=== PATIENT | female | born 1975 | race Caucasian/White ===

== ENCOUNTER 2024-12-24 08:49 | Outpatient (CLI) | payer OTHER, SELFPAY ==
--- OUTSIDE RECORDS SUMMARY | 2024-12-24 08:56 | XMS_ITS | Clinical Summary ---
Author Organization [facility] Address [address] [place] [address] Care Team Providers Care Tuck Pointer Helper Name Role Phone Stevan Ricardo MD Primary Care Provider [phone]- [phone] Source Comments [facility],non-owned Affiliates and Associated Physician Practices is amultiple site organization consisting of ambulatory clinics and hospital sitesin [place], [place], [place] and [place]. This disclosure is being madepursuant to the Care Everywhere program and may not contain all information available regarding this patient. Last updated 18.[facility] Social History Tobacco Use Types Packs/Day Years Used Date Smoking Tobacco: Never Assessed Comments Unknown Sex and Gender Information Value Date Recorded Sex Assigned at Not on file Legal Sex Female 4:04 AM CDT Gender Identity Not on file Sexual Orientation Not on file Plan of Treatment Health Maintenance Due Date Last Done Comments COLOGUARD (AGES 45-75) - COL ON CA SCREENING 1974 COLON MONITORING 1974 COLONOSCOPY - COLON CA SCREENING 1974 CT COLONOGRAPHY - COLON CA SCREENING 1974 Colorectal Cancer Screening 1974 FIT - COLON CA SCREENING 1974 FLEX SIG - COLON CA SCREENING 1974 LIPID TESTING 1974 MAMMOGRAM 1974 HIV SCREENING 1989 HEPATITIS C SCREENING 07/23/1992 DTAP/TDAP/TD VACCINES (1 - Tdap) 1993 HEPATITIS B VACCINE (1 of 3 - 19+ 3-dose series) 1993 COVID-19 VACCINE ( - 2023-2 5 season) 2024 DEPRESSION SCREENING 05/07/2024 PNEUMOCOCCAL VACCINE 50+ (1 of 1 - PCV) 2024 ZOSTER VACCINE (1 of 2) 2024 INFLUENZA VACCINE (#1) 2025 HIB VACCINE Aged Out No longer eligi ble based on patient's age to complete this topic HPV VACCINE Aged Out No longer eligi ble based on patient's age to complete this topic MENINGOCOCCAL (Group B) VACC INE SHARED DECISION-MAKING Aged Out No longer eligibl e based on patient's age to complete this topic MENINGOCOCCAL GROUPS A/C/Y/W VACCINE Aged Out No longer eligible b ased on patient's age to complete this topic Insurance ANTHEM Care Teams Tuck Pointer Helper Relationship Specialty Start Date End Date Steavn Ricardo MD [address] [place] [id number] PCP - General 02/10/19
--- OUTSIDE RECORDS SUMMARY | 2024-12-24 08:56 | XMS_ITS | Clinical Summary ---
Author Organization [facility] Address [address] [place] [address] Care Team Providers Care Nut Grader Name Role Phone Stevan Ricardo MD Primary Care Provider [phone]- [phone] Allergies Active Allergy Reactions Criticality Noted Date Comments Covid-19 Vaccine, Mrna, [id number], Lnp-S ([employer]) Shortness of Breath/Wheezing,Palpitation s,Dizziness High 05/20/2020 Medications flu vaccine quadrivalent 2018- (6 mo+)(PF)(FUARIX QUAD,FLULAVAL QUAD/FLUZONE QUAD) 60 mcg/0.5 mL IM syringe To be administered by pharmacist 0.5 mL 02/27/2019 12:51 PM CDT 9 Active flu vaccine quadrivalent 2019-, 6 mo+,,PF, (Flulaval Quad , PF,) 60 mcg (15 mcg x 4)/0.5 mL Syringe syringe TO BE ADMINISTERED BY PHARMACIST. 0.5 mL 03/03/2020 4:46 PM CDT 0 Active sertraline (ZOLOFT) 50 mg tablet Take 1 Tablet (50 mg) by mouth daily. 90 Tablet 3 0 Active ALPRAZolam (XANAX) 0.25 mg tablet Take 0.25 mg by mouth nightly as needed for Anxiety. Active Active Problems No known active problems Encounters Date Type Department Care Team Description 12/09/2024 External Device Data [facility] ABSTRACTION Provider, Abstract 11/19/2024 External Device Data [facility]CTION Provider, Abstract 11/18/2024 External Device Data [facility]CTION Provider, Abstract 10/21/2024 External Device Data [facility]CTION Provider, Abstract 09/25/2024 External Device Data [facility] Provider, Abstract 09/23/2024 External Device Data [facility] Provider, Abstract from Last 3 Months Immunizations Immunization Administration Dates Next Due (PFIZER OSMANI)(12 YR UP PRIMA RY SERIES) COVID-19 VACCINE - EMERGENCY USE AUTHORIZATION, MRNA, OSMANI(PF) 30 MCG/0.3 ML IM SUSP 06/03/2021 (PFIZER)(12 YR UP) COVID-19 VACCINE - EMERGENCY USE AUTHORIZATION, MRNA, [id number](PF) 30 MCG/0.3 ML IM SUSP 05/13/2021,04/22/2020 INFLUENZA VACCINE QUADRIVALE NT 3 YR UP PF IM 03/03/2020,02/27/2019 Influenza Seasonal Unspecifi ed Formulation IM 03/03/2020,02/27/2019,02/06/2018 Family History Medical History Relation Name Comments Breast Cancer Maternal Aunt 60's Ovarian Cancer Neg Hx Relation Name Status Comments Maternal Aunt Social History Tobacco Use Types Packs/Day Years Used Date Smoking Tobacco: Never Alcohol Use Standard Drinks/Week Comments Not Currently 0 (1 standard drink = 0.6 oz pur e alcohol) Comments Unknown Sex and Gender Information Value Date Recorded Sex Assigned at Not on file Legal Sex Female 11:27 PM CDT Gender Identity Not on file Sexual Orientation Not on file Last Filed Vital Signs Vital Sign Reading Time Taken Comments Blood Pressure 120/80 06/25/2020 2:27 PM NOZZLE TENDER Pulse 106 06/25/2020 2:27 PM NOZZLE TENDER Temperature 36.3 C (97.3 F) 05/14/2020 3:21 PM NOZZLE TENDER Respiratory Rate 16 04/22/2020 9:02 PM NOZZLE TENDER Oxygen Saturation 98% 04/22/2020 9:02 PM NOZZLE TENDER Inhaled Oxygen Concentration - - Weight 82.6 kg (182 lb) 06/25/2020 2:27 PM NOZZLE TENDER Height 160 cm (5' 3) 06/25/2020 2:27 PM NOZZLE TENDER Body Mass Index 32.24 06/25/2020 2:27 PM NOZZLE TENDER Plan of Treatment Health Maintenance Due Date Last Done Comments DTAP/TDAP/TD VACCINES (1 - Tdap) 1993 HEPATITIS B VACCINES (1 of 3 - 19+ 3-dose series) 1993 HPV/Cotest (21-29) 07/29/1995 HPV/Cotest (30-65) 2004 COLORECTAL SCREENING 07/29/2019 Colorectal Cancer Screening 07/29/2019 FIT-DNA Q 3 years 07/29/2019 FIT/FOBT Q 1 year 07/29/2019 Flex Sig/CT Colonography Q 5 years 07/29/2019 CERVICAL CANCER SCREENING 12/03/2021 PAP SMEAR 12/03/2021 12/03/2018, 12/03/2018 COVID-19 Vaccine (2023-2 5 season) 2024 06/03/2021, 05/13/2021, 04/22/2020 ZOSTER VACCINE (1 of 2) 2024 INFLUENZA VACCINE (#1) 2024 , 03/03/2020, 02/27/2019, Additional history exists BREAST CANCER SCREENING 07/21/2025 07/22/19 25, 07/27/2023, 11/10/2022 Procedures Procedure Name Priority Date/Time Associated Diagnosis Comments MAMMO 3D DAVID DIAGNOSTIC BILAT W OR WO CAD Routine 07/21/2024 8:16 AM CDT Category 3 mammography result with short follow-up interval suggested for probably benign finding from Last 3 Months or Most Recently Relevant to Health Maintenance Results * MAMMO 3D DAVID DIAGNOSTIC BILAT W OR WO CAD (07/21/2024 8:16 AM CDT) Anatomical Region Laterality Modality Breast Bilateral Mammography 07/21/2024 8:16 AM CDT Impressions 07/21/2024 8:48 AM CDT IMPRESSION: No evidence of malignancy. RECOMMENDATIONS: Bilateral annual screening mammogram. OVERALL FINAL ASSESSMENT: BI-RADS CATEGORY 2 - Benign findings DICTATION LOCATION: [facility] 07/21/2024 8:48 AM CDT EXAMINATION: BILATERAL DIAGNOSTIC DIGITAL MAMMOGRAPHY WITH TOMOSYNTHESIS AND CAD DATE: 07/21/2024 8:16 AM HISTORY: Six-month follow-up of the left breast lesion. Right breast palpable mass. COMPARISON: 07/21/2024, 07/27/2023 and 11/10/2022. TECHNIQUE: A bilateral diagnostic mammogram was performed. Low-dose full-field digital breast tomosynthesis examination was performed with 2D and 3D acquisitions. Examination is read in conjunction with computer aided detection. BREAST COMPOSITION: There are scattered areas of fibroglandular density. MAMMOGRAPHIC FINDINGS: A mass in the right subareolar region slightly superiorly is seen which corresponds to the palpable area. No malignant calcification or architectural distortion is identified. No new mass, malignant calcification or architectural distortion is identified in the left the breast. There has been no significant interval change in the left the breast. Computer aided detection was used in the interpretation of this examination. Left breast ultrasound findings: Comparison studies are dated 07/27/2023 and 12/04/2022. At 2:00, 2 cm from nipple, a few clustered cysts are again visualized. No solid mass is seen. Right breast ultrasound findings: In the subareolar region at 10:00, two adjacent cysts are visualized. The overall size measures 3.8 x 1.8 x 2.3 cm. No solid mass is identified. us Stevan Ricardo MD MAMMO ORDERABLES Final Res ult from Last 3 Months or Most Recently Relevant to Health Maintenance Insurance RX MEDIMPACT Member Subscriber Plan / Payer (Ef fective for All Dates) Name:Caty Pedro Relation to Subscriber:Self Name:Caty Pedro Payer ID:Not on file Group ID:[id number] Type:[id number] Commercial Address: [address] [employer] [address] Care Teams Nut Grader Relationship Specialty Start Date End Date Stevan Ricardo MD PCP - General Family Practice 06/24/18
[2024-12-24 12:53] LABS: Hematocrit 42.3 % (37.0-47.0); Hemoglobin 13.2 g/dL (12.0-15.0); Immature Granulocyte Percent A 0.4 % (0-0.5); Lymphocytes Absolute Auto 2.25 K/mm3 (0.9-3.2); Mean Corpuscular HGB Conc 31.2 g/dl (32-36); Mean Corpuscular Hemoglobin 27.8 pg (26-34); Mean Corpuscular Volume 89.1 fl (80-100); Nucleated Red Blood Cells Absolute Auto 0.000 K/mm3 (0.0-0.012); Nucleated Red Blood Cells Perc 0.0 % (0.0-0.2); Platelet Count Result 403 k/mm3 (150-375); Red Blood Count 4.75 M/mm3 (4.2-5.4); White Blood Count 10.3 K/mm3 (4.5-10.0)
[2024-12-24 14:38] LABS: Alanine Aminotransferase 23 U/L (6-35); Albumin Level 4.2 g/dL (3.5-5.1); Alkaline Phosphatase 44 U/L (38-126); Anion Gap 9 mmol/L (4-12); Aspartate Amino Transferase 35 U/L (14-36); Bilirubin,Total 0.4 mg/dL (0.2-1.3); Blood Urea Nitrogen 7 mg/dL (7-17); Calcium 9.4 mg/dL (8.4-10.2); Carbon Dioxide 25 mmol/L (22-30); Chloride 105 mmol/L (98-107); Estimated Glomerular Filt Rate > 60; Glucose 90 mg/dL (65-110); Potassium 4.0 mmol/L (3.4-5.0); Sodium 139 mmol/L (137-145); Total Protein 7.7 g/dL (6.3-8.2)
[2024-12-24 14:48] LABS: Free T3 3.96 pg/mL (2.71-6.16); Free T4 Free Thyroxine 1.05 ng/dL (0.78-2.19)
[2024-12-24 15:09] LABS: Thyroid Stimulating Hormone 1.210 uIU/mL (0.465-4.680)
[2024-12-24 15:28] LABS: Vitamin B12 222.0 pg/mL (239-931)
[2024-12-25 12:08] LABS: FSH 12.5 mIU/mL (.)
[2024-12-31 18:08] LABS: Estradiol, Sensitive 111.2 pg/mL (.)
== END 2024-12-24 08:50 | disposition home or self-care (01) ==
LOC: ANHGOSHLAB 08:50
PROVIDERS: PCP Family Medicine; Visit Provider Nurse Practitioner Family
DX: D72.823 Leukemoid reaction (principal); E07.9 Disorder of thyroid, unspecified; E53.9 Vitamin B deficiency, unspecified; E66.9 Obesity, unspecified; F41.8 Other specified anxiety disorders; R00.2 Palpitations; R03.0 Elevated blood-pressure reading, without diagnosis of hypertension
CPT/HCPCS: 36415; 80053; 82607; 82670; 83001; 84439; 84443; 84481; 85025